=== PATIENT | female | born 1995 | race Two or more races ===

== ENCOUNTER 2016-10-04 15:19 | Emergency (ER) | payer OTHER ==
[~2016-10-04] VITALS: Ht 157.5 cm; Wt 64.0 kg
[2016-10-04 15:31] VITALS: BP 120/68
[2016-10-04] MEDS ORDERED: ONDANSETRON ODT 4 MG TAB.RAPDIS PO ONE (15:45)
--- NOTE | 2016-10-04 16:04 | ED.ADGEN ---
Past History Past Medical History: Migraines Past Surgical History: Other Alcohol Use: None Drug Use: None Adult General Chief Complaint Chief Complaint Vomiting and diarrhea HPI HPI Patient is a 21-year-old female presents with intermittent vomiting and diarrhea for the past several hours. Symptoms began this morning as lightheadedness, abdominal pain. No fevers chills or sweats. Reports recent GI illness exposure. Review of Systems Review of Systems Review symptoms as per history of present illness. Current Medications Current Medications Current Medications Medications (Trade) Dose Ordered Sig/Laure Start Time Stop Time Status Last Admin Dose Admin Ondansetron HCl (Zofran Odt) 8 mg 1X ONCE 10/04/16 15:45 10/04/16 15:46 DC 10/04/16 15:39 8 MG Allergies Allergies Allergies Coded Allergies Type Severity Reaction Last Updated Verified No Known Drug Allergies 10/04/16 No Physical Exam Physical Exam Constitutional: Well developed, well nourished, no acute distress, non-toxic appearance. HENT: Normocephalic, atraumatic, bilateral external ears normal, oropharynx moist, no oral exudates, nose normal. Eyes: PERRL. Neck: Normal range of motion. Cardiovascular:Heart rate regular rhythm, no murmur. Lungs & Thorax: Bilateral breath sounds clear to auscultation. Abdomen: Bowel sounds normal, soft, nontender. Skin: Warm, dry. Back: No tenderness, no CVA tenderness. Extremities: No tenderness. Neurologic: Alert and oriented X 3, normal motor function, normal sensory function, no focal deficits noted. Psychologic: Affect normal, judgement normal, mood normal. Current Patient Data Vital Signs Vital Signs Date Time Temp Pulse Resp B/P Pulse Ox O2 Delivery O2 Flow Rate FiO2 10/04/16 15:31 98.4 113 18 100 Room Air EKG EKG [] Radiology/Procedures Radiology/Procedures [] Impressions: #1 nausea vomiting and diarrhea Course & Med Decision Making Course & Med Decision Making Pertinent Labs and Imaging studies reviewed. (See chart for details) [Symptoms resolved with treatment in the ED. Recommend supportive care with PCP follow-up as needed.] Final Impression Final Impression [#1 nausea vomiting and diarrhea] Problems: Dragon Disclaimer Dragon Disclaimer This electronic medical record was generated, in whole or in part, using a voice recognition dictation system. LINDY CADE DO Oct 04, 2016 16:04
== END 2016-10-04 16:03 | disposition home or self-care (01) ==
LOC: ER 15:19
DX: R11.2 Nausea with vomiting, unspecified (principal); R42 Dizziness and giddiness; R19.7 Diarrhea, unspecified; R10.9 Unspecified abdominal pain; G43.909 Migraine, unspecified, not intractable, without status migrainosus
CPT/HCPCS: 99282; Q0162; 99283

== ENCOUNTER 2018-06-07 18:41 | Emergency (ER) | payer OTHER ==
[~2018-06-07] VITALS: Ht 157.5 cm; Wt 57.6 kg
[2018-06-07] MEDS ORDERED: ONDANSETRON ODT 4 MG TAB.RAPDIS PO ONE (20:15)
[2018-06-07] MEDS ORDERED: ONDA4TAB7 PO (20:58)
[2018-06-07 21:00] VITALS: BP 122/96
[2018-06-07 21:09] LABS: BACTERIA,URINE 0 /HPF (0-FEW); BILIRUBIN,URINE NEG (NEG); CLARITY,URINE HAZY; COLOR,URINE YELLOW; GLUCOSE,URINE NEG (NEG); NITRITE,URINE NEG (NEG); RBC,URINE OCC /HPF (0-2); SQUAMOUS EPITHELIAL CELL,UR MANY /LPF; UROBILINOGEN,URINE 0.2 mg/dL (0.2 mg/dL)
--- NOTE | 2018-06-07 21:14 | ED.ADGEN ---
Past History Past Medical History: Migraines Past Surgical History: Other Alcohol Use: None Drug Use: None Adult General Chief Complaint Chief Complaint Nausea vomiting HPI HPI Patient is a 22-year-old female presents with intermittent nausea with multiple episodes of vomiting throughout the day. Does report dizziness or lightheadedness. No abdominal pain, diarrhea. No chest pain palpitations shortness of breath. No fever chills or sweats. reports multiple potential GI illness exposures. Patient works as a [employer]. Last menstrual period one month ago. No other acute symptoms] Review of Systems Review of Systems Review symptoms as per history of present illness. All other review symptoms are negative. All other systems were reviewed and found to be within normal limits, except as documented in this note. Current Medications Current Medications Current Medications Medications (Trade) Dose Ordered Sig/Laure Start Time Stop Time Status Last Admin Dose Admin Ondansetron HCl (Zofran Odt) 4 mg 1X ONCE 06/07/18 20:15 06/07/18 20:16 DC 06/07/18 20:23 4 MG Allergies Allergies Allergies Coded Allergies Type Severity Reaction Last Updated Verified No Known Drug Allergies 10/04/16 No Physical Exam Physical Exam Constitutional: Well developed, well nourished, no acute distress, non-toxic appearance. [] HENT: Normocephalic, atraumatic, bilateral external ears normal, oropharynx moist, no oral exudates, nose normal. [] Eyes: PERRLA, EOMI, conjunctiva normal, no discharge. [] Neck: Normal range of motion, no tenderness, supple, no stridor. [] Cardiovascular:Heart rate regular rhythm, no murmur [] Lungs & Thorax: Bilateral breath sounds clear to auscultation [] Abdomen: Bowel sounds normal, soft, no tenderness. [] Skin: Warm, dry, no erythema, no rash. [] Back: No tenderness, no CVA tenderness. [] Extremities: No tenderness, no cyanosis, no clubbing, ROM intact, no edema. [] Neurologic: Alert and oriented X 3, normal motor function, normal sensory function, no focal deficits noted. [] Psychologic: Affect normal, judgement normal, mood normal. [] Current Patient Data Vital Signs Vital Signs Date Time Temp Pulse Resp B/P (MAP) Pulse Ox O2 Delivery O2 Flow Rate FiO2 06/07/18 19:45 98.2 90 18 100 Room Air Lab Results Laboratory Tests Test 06/07/18 20:26 POC Urine HCG, Qualitative hcg negative (Negative) EKG EKG [] Radiology/Procedures Radiology/Procedures [] Course & Med Decision Making Course & Med Decision Making Pertinent Labs and Imaging studies reviewed. (See chart for details) [No vomiting in the ED. Tolerates oral intake. Recommend supportive care with PCP follow-up as needed. Courtesy work note provided.] Final Impression Final Impression [1 nausea and vomiting] Gerard Disclaimer Gerard Disclaimer This electronic medical record was generated, in whole or in part, using a voice recognition dictation system. LINDY CADE DO Jun 07, 2018 21:14
== END 2018-06-07 21:17 | disposition home or self-care (01) ==
LOC: ER 18:41
DX: R11.2 Nausea with vomiting, unspecified (principal); R42 Dizziness and giddiness; G43.909 Migraine, unspecified, not intractable, without status migrainosus
CPT/HCPCS: 81001; 81025; 87086; 99283; Q0162